=== PATIENT | male | born 1955 | race Native Hawaiian/Other Pacific Islander ===

== ENCOUNTER 2022-06-16 12:11 | Outpatient (CLI) | payer OTHER | END 2022-06-16 20:16 | disposition home or self-care (01) | LOC: RAD 12:11 | PROVIDERS: ATTEND Nurse Practitioner Family | DX: R05.3 Chronic cough (principal); R06.02 Shortness of breath ==

== ENCOUNTER 2022-10-05 06:53 | Outpatient (CLI) | payer OTHER, BC ==
[2022-10-05 07:11] LABS: PLATELET COUNT 250 K/uL (142-355)
[2022-10-05 08:14] LABS: POTASSIUM 4.2 mmol/L (3.6-5.2)
== END 2022-10-05 18:59 | disposition home or self-care (01) ==
LOC: LAB 06:53
PROVIDERS: ATTEND Nurse Practitioner Family
DX: I48.91 Unspecified atrial fibrillation (principal)
CPT/HCPCS: 36415; 80048; 85027